=== PATIENT | female | born 1935 | race Caucasian/White ===

== ENCOUNTER 2017-02-17 06:49 | Day surgery (SDC) | payer OTHER ==
[~2017-02-17] VITALS: Ht 162.6 cm; Wt 54.5 kg
[~2017-02-17 06:49] MED LIST: ALEN70TA5 PO; ASCO500T8 PO; B12 PO; CALCIUM PO; D3 PO; FLUO40CR9 TD; GABA100C PO; HYDR-3307 PO; HYDR12.58 PO; IBUP200T5 PO; LOSA25TA5 PO; MULTI VITAMIN PO; ONDA-39 PO; OXYC1TAB7 PO; SIMV10TA3 PO; TRAM50TA2 PO; TRIA15OI TD; [UNRECOGNIZED DRUG - OTHER] PO
[2017-02-17] MEDS ORDERED: LACTATED RINGERS 1,000 ML IV SCH (07:19)
[2017-02-17 07:47] VITALS: BP 137/74
[2017-02-17] MEDS ORDERED: BUPIVACAINE/PF 0.5% ONE (08:30)
[2017-02-17] MEDS ORDERED: BUPIVACAINE/PF-EPI 0.25% 1:200K ONE (08:31)
[2017-02-17] MEDS ORDERED: FENTANYL PF 250 MCG/5ML ONE (08:51)
[2017-02-17] MEDS ORDERED: MIDAZOLAM 1 MG/ML, 2ML ONE (08:51)
[2017-02-17] MEDS ORDERED: DEXAMETHASONE 4 MG/ML, 1ML ONE (08:52)
[2017-02-17] MEDS ORDERED: PROPOFOL 10 MG/ML, 50ML ONE (08:52)
[2017-02-17] MEDS ORDERED: CEFAZOLIN 1,000 MG ONE (08:52)
[2017-02-17] MEDS ORDERED: ONDANSETRON 2MG/ML, 2ML ONE (08:52)
[2017-02-17] MEDS ORDERED: PROMETHAZINE 25 MG/ML, 1ML IV PRN (09:30)
[2017-02-17] MEDS ORDERED: ACETAMINOPHEN 325 MG TABLET PO PRN (09:30)
[2017-02-17] MEDS ORDERED: MIDAZOLAM 1 MG/ML, 2ML IV PRN (09:30)
[2017-02-17] MEDS ORDERED: MEPERIDINE/PF 25MG/0.5ML IVPush PRN (09:30)
[2017-02-17] MEDS ORDERED: HYDROmorphone 1 MG/ML, 1ML IV PRN (09:30)
[2017-02-17] MEDS ORDERED: METOCLOPRAMIDE 5 MG/ML, 2ML IV PRN (09:30)
[2017-02-17] MEDS ORDERED: OXYcodone 5 MG/5 ML ORAL.SOL UDC PO PRN (09:30)
[2017-02-17] MEDS ORDERED: FENTANYL PF 100 MCG/2ML IV PRN (09:30)
[2017-02-17] MEDS ORDERED: LABETALOL 5MG/ML, 20ML IV PRN (09:30)
[2017-02-17] MEDS ORDERED: hydrALAzine 20 MG/ML, 1ML IV PRN (09:30)
[2017-02-17] MEDS ORDERED: ONDANSETRON 2MG/ML, 2ML IVPush PRN (09:30)
[2017-02-17] MEDS ORDERED: OXYcodone 5 MG/5 ML ORAL.SOL UDC ONE (10:19)
[2017-02-17] MEDS ORDERED: LABETALOL 5MG/ML, 20ML ONE (10:22)
[2017-02-17] MEDS ORDERED: hydrALAzine 20 MG/ML, 1ML ONE (10:43)
== END 2017-02-17 12:20 ==
LOC: OUT 06:49
PROVIDERS: ATTEND Surgery
DX: L94.2 Calcinosis cutis (principal); Z79.82 Long term (current) use of aspirin; E78.00 Pure hypercholesterolemia, unspecified; Z87.39 Personal history of other diseases of the musculoskeletal system and connective tissue; Z90.49 Acquired absence of other specified parts of digestive tract; Z72.89 Other problems related to lifestyle; Z82.49 Family history of ischemic heart disease and other diseases of the circulatory system
CPT/HCPCS: 11403; 11404; 88304; 88311; J0360; J0690; J1100; J2250; J2405; J2704; J3010; J3490; J7120

== ENCOUNTER → 2017-10-05 | Outpatient (CLI) | payer OTHER ==
[~2017-10-05] MED LIST changes: +IBUP-1484 PO; -IBUP200T5 PO; -ONDA-39 PO; +ONDA4TAB12 PO
== END | disposition home or self-care (01) ==
LOC: CFH 10:22
PROVIDERS: ATTEND Nurse Practitioner Family
DX: Z12.31 Encounter for screening mammogram for malignant neoplasm of breast (principal); M85.88 Other specified disorders of bone density and structure, other site; M81.0 Age-related osteoporosis without current pathological fracture
CPT/HCPCS: 77080; G0202

== ENCOUNTER → 2019-02-05 | Outpatient (CLI) | payer MEDICARE ==
[~2019-02-05] MED LIST changes: -ALEN70TA5 PO; +ALEN70TA6 PO; -HYDR12.58 PO; +HYDROCHLOROTH12.5 MG PO; +LOSA25TA25 PO; -LOSA25TA5 PO
== END | disposition home or self-care (01) ==
LOC: RAD 08:45
PROVIDERS: ATTEND Surgery
DX: K91.30 Postprocedural intestinal obstruction, unspecified as to partial versus complete (principal); K63.89 Other specified diseases of intestine; Z88.6 Allergy status to analgesic agent; Z88.5 Allergy status to narcotic agent
CPT/HCPCS: 74250

== ENCOUNTER 2019-03-15 06:14 | Inpatient (IN) | payer MEDICARE ==
[~2019-03-15] VITALS: Ht 162.6 cm; Wt 53.2 kg
--- NOTE | 2019-03-15 06:15 | NUR ---
PT STRAIGHT BACK TO ROOM FROM TRIAGE DUE TO LEVEL OF DISCOMFORT. UNABLE TO OBTAIN VITALS IN TRIAGE
[2019-03-15] MEDS ORDERED: SODIUM CHLORIDE 0.9% 1,000 ML IV ONE ×2 (06:27→08:01)
[2019-03-15] MEDS ORDERED: SODIUM CHLORIDE FLUSH 10ML SYR IVF ONE (06:30)
[2019-03-15] MEDS ORDERED: ONDANSETRON 2MG/ML, 2ML IVPush ONE (06:30)
[2019-03-15] MEDS ORDERED: SODIUM CHLORIDE 0.9% 1,000ML IVBOLUS ONE (06:30)
[2019-03-15] MEDS ORDERED: ONDANSETRON 2MG/ML, 2ML ONE (06:31)
[2019-03-15] MEDS ORDERED: MORPHINE SULFATE 4 MG/ML, 1ML ONE ×3 (06:31→08:12)
--- NOTE | 2019-03-15 06:33 | NUR ---
DR. CAT IN TO EVAL PT. AND DISCUSS POC WITH PT. AND AT BS. DR. 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 IV ESTABLISHED.
[2019-03-15] MEDS: MORPHINE SULFATE 4 MG/ML, 1ML IVPush PRN ×2 (06:38→06:54)
--- NOTE | 2019-03-15 06:39 | NUR ---
CT WAS CALLED AND ASKED TO DO SCAN STAT. PT TO CT NOW.
--- NOTE | 2019-03-15 06:57 | NUR ---
IVF INFSUING, ALL MONITORS IN PLACE. REPORT TO LETY KHAN TO ASSUME CARE OF PT. PT. HAD CT DONE; THIS RN ACCOMPANIED PT. TO CT. AT FOR SUPPORT. PT. MEDICATED WITH 2ND DOSE PAIN MEDS PER MAR FOR CONTINUED 8/10 ABD PAIN.
--- NOTE | 2019-03-15 07:07 | NUR ---
bedside report from RN Judie, pt care assumed at this time. Pt in bed, CT & chest Xray complete, phlembotomist at bedside to collect blood, pt on all monitors, family member at bedside. МАРИНА.
[2019-03-15 07:27] LABS: BASOPHILS # (AUTO) 0.03 x10^3/uL (0-0.1); BASOPHILS % (AUTO) 0 % (0-1); EOSINOPHILS # (AUTO) 0.12 x10^3/uL (0-0.4); EOSINOPHILS % (AUTO) 2 % (1-7); LYMPHOCYTES # (AUTO) 2.05 x10^3/uL (1-3.4); LYMPHOCYTES % (AUTO) 26 % (22-44); MD NO; MEAN CORPUSCULAR HEMOGLOBIN 31.3 pg (27.0-34.8); MEAN CORPUSCULAR HGB CONC 31.9 g/dL (32.4-35.8); MEAN CORPUSCULAR VOLUME 98.1 fL (80-100); MEAN PLATELET VOLUME 8.1 fL (7.4-10.4); MONOCYTES # (AUTO) 0.68 x10^3/uL (0.2-0.8); MONOCYTES % (AUTO) 9 % (2-9); NEUTROPHILS # (AUTO) 5.07 x10^3/uL (1.8-6.8); NEUTROPHILS % (AUTO) 64 % (42-75); PLATELET COUNT 293 x10^3/uL (130-400); RED BLOOD COUNT 3.49 x10^6/uL (3.82-5.3); RED CELL DISTRIBUTION WIDTH 14.3 % (9.6-15.2)
[2019-03-15 07:34] LABS: ALANINE AMINOTRANSFERASE 39 U/L (12-78); ALBUMIN 3.6 g/dL (3.4-5.0); ANION GAP 5 mmol/L (5-15); CALCIUM 9.2 mg/dL (8.5-10.1); CHLORIDE 118 mmol/L (98-107); CREATININE 1.89 mg/dL (0.55-1.02)
[2019-03-15 07:36] LABS: ALKALINE PHOSPHATASE 65 U/L (45-117); TOTAL PROTEIN 6.1 g/dL (6.4-8.2)
[2019-03-15 07:37] LABS: BILIRUBIN,TOTAL < 0.1 mg/dL (0.2-1.0)
[2019-03-15] MEDS ORDERED: MORPHINE SULFATE 4 MG/ML, 1ML IVPush PRN (08:30)
[2019-03-15] MEDS ORDERED: SODIUM CHLORIDE FLUSH 10ML SYR IVF PRN (08:30)
[2019-03-15 10:15] VITALS: BP 133/68
[2019-03-15] MEDS ORDERED: ONDANSETRON 2MG/ML, 2ML IVPush PRN (11:00)
[2019-03-15] MEDS ORDERED: ACETAMINOPHEN 325 MG TABLET PO PRN (11:00)
[2019-03-15 12:23] LABS: MICROSCOPIC NOT IND
[2019-03-15 12:28] LABS: CULTURE INDICATED? NO
[2019-03-15 13:14] VITALS: BP 125/74
[2019-03-15] MEDS: SODIUM CHLORIDE 0.9% 1,000 ML IV SCH (13:18)
[2019-03-15 13:37] VITALS: BP 126/69
[2019-03-15 18:45] VITALS: BP 143/70
[2019-03-16 00:48] VITALS: BP 137/70
[2019-03-16] MEDS: SODIUM CHLORIDE 0.9% 1,000 ML IV SCH (02:20)
[2019-03-16] MEDS: morphine SULFATE 10 MG/ML, 1ML IVPush PRN (02:20)
[2019-03-16 05:28] LABS: ANION GAP 6 mmol/L (5-15); CALCIUM 8.2 mg/dL (8.5-10.1); CHLORIDE 123 mmol/L (98-107)
[2019-03-16 05:32] LABS: CREATININE 1.65 mg/dL (0.55-1.02)
[2019-03-16 06:19] LABS: MD YES; MEAN CORPUSCULAR HEMOGLOBIN 32.5 pg (27.0-34.8); MEAN CORPUSCULAR HGB CONC 33.2 g/dL (32.4-35.8); MEAN CORPUSCULAR VOLUME 97.8 fL (80-100); MEAN PLATELET VOLUME 9.1 fL (7.4-10.4); PLATELET COUNT 270 x10^3/uL (130-400); RED BLOOD COUNT 3.22 x10^6/uL (3.82-5.3); RED CELL DISTRIBUTION WIDTH 14.2 % (9.6-15.2)
[2019-03-16 06:20] LABS: EOS#(MANUAL) 0.19 x10^3/uL (0.0-0.4); EOS% (MANUAL) 3 % (1-7); LYMPH#(MANUAL) 1.55 x10^3/uL (1-3.4); LYMPHS% (MANUAL) 25 % (22-44); MONOS#(MANUAL) 0.37 x10^3/uL (0.3-2.7); MONOS% (MANUAL) 6 % (2-9); SEG#(MANUAL) 4.09 x10^3/uL (1.8-6.8); SEGS% (MANUAL) 66 % (42-75)
[2019-03-16 06:21] LABS: <PLATELET ESTIMATE> ADEQUATE; <PLT MORPHOLOGY> NORMAL PLT MORPH; <RBC MORPHOLOGY> NORMAL
[2019-03-16] MEDS: PANTOPRAZOLE 40 MG IV IVPush SCH (07:30)
[2019-03-16 07:34] VITALS: BP 136/74
[2019-03-16] MEDS: D5%-0.45% NACL 1,000 ML IV SCH (11:01)
[2019-03-16 13:00] VITALS: BP 171/89
[2019-03-16 13:07] LABS: ANION GAP 7 mmol/L (5-15); CALCIUM 8.3 mg/dL (8.5-10.1); CHLORIDE 121 mmol/L (98-107); CREATININE 1.67 mg/dL (0.55-1.02)
[2019-03-16 14:18] VITALS: BP 174/83
[2019-03-16] MEDS: hydrALAzine 20 MG/ML, 1ML IVPush PRN (14:24)
[2019-03-16] MEDS: METOCLOPRAMIDE 5 MG/ML, 2ML IVPush SCH ×2 (17:13→21:21)
[2019-03-16 18:10] VITALS: BP 168/97
[2019-03-17 00:19] VITALS: BP 155/77
[2019-03-17] MEDS: D5%-0.45% NACL 1,000 ML IV SCH (04:32)
[2019-03-17] MEDS: METOCLOPRAMIDE 5 MG/ML, 2ML IVPush SCH (04:32)
[2019-03-17] MEDS: PANTOPRAZOLE 40 MG IV IVPush SCH (08:50)
[2019-03-17 09:00] VITALS: BP 177/79
[2019-03-17] MEDS: hydrALAzine 20 MG/ML, 1ML IVPush PRN (09:51)
[2019-03-17] MEDS: METOCLOPRAMIDE 1 MG/1 ML ORAL SOL PO SCH ×3 (11:30→20:06)
[2019-03-17] MEDS: LOSARTAN 25MG TABLET PO SCH (12:38)
[2019-03-17] MEDS: ASCORBIC ACID 500 MG TABLET PO SCH (12:38)
[2019-03-17 14:28] VITALS: BP 155/75
[2019-03-17 15:53] LABS: ANION GAP 8 mmol/L (5-15); CALCIUM 8.5 mg/dL (8.5-10.1); CHLORIDE 118 mmol/L (98-107)
[2019-03-17 15:54] LABS: CREATININE 1.77 mg/dL (0.55-1.02)
[2019-03-17] MEDS ORDERED: MAGNESIUM SULFATE PMX 2GM/50ML 50 ML IV ONE (17:00)
[2019-03-17 20:13] VITALS: BP 162/73
[2019-03-17] MEDS ORDERED: GABAPENTIN 100 MG CAPSULE PO SCH (21:00)
[2019-03-17] MEDS ORDERED: SIMVASTATIN 10 MG TABLET PO SCH (21:00)
[2019-03-17] MEDS: morphine SULFATE 10 MG/ML, 1ML IVPush PRN (22:39)
[2019-03-18 01:07] VITALS: BP 154/71
[2019-03-18] MEDS: METOCLOPRAMIDE 1 MG/1 ML ORAL SOL PO SCH ×2 (05:12→10:58)
[2019-03-18 07:19] VITALS: BP 156/72
[2019-03-18] MEDS: ASCORBIC ACID 500 MG TABLET PO SCH (08:54)
[2019-03-18] MEDS: PANTOPRAZOLE 40 MG IV IVPush SCH (08:54)
[2019-03-18] MEDS: LOSARTAN 25MG TABLET PO SCH (08:55)
[2019-03-18 13:01] VITALS: BP 134/79
[2019-03-18] MEDS ORDERED: ERYT250C8 PO (13:06)
== END 2019-03-18 14:45 | disposition home or self-care (01) | DRG 389 ==
LOC: ED 07:55 → 4NOR 09:45 → ED 10:20 → 4NOR 10:23
PROVIDERS: ADMIT Internal Medicine; ATTEND Internal Medicine
DX: K56.7 Ileus, unspecified (principal); N18.4 Chronic kidney disease, stage 4 (severe); E87.0 Hyperosmolality and hypernatremia; K31.84 Gastroparesis; D63.1 Anemia in chronic kidney disease; E78.5 Hyperlipidemia, unspecified; E83.42 Hypomagnesemia; E87.5 Hyperkalemia; G89.29 Other chronic pain; M54.9 Dorsalgia, unspecified; I12.9 Hypertensive chronic kidney disease with stage 1 through stage 4 chronic kidney disease, or unspecified chronic kidney disease; M81.0 Age-related osteoporosis without current pathological fracture; Z82.49 Family history of ischemic heart disease and other diseases of the circulatory system; Z82.5 Family history of asthma and other chronic lower respiratory diseases; Z79.899 Other long term (current) drug therapy; Z90.49 Acquired absence of other specified parts of digestive tract
CPT/HCPCS: 36415; 71045; 74018; 74176; 74250; 80048; 80053; 81003; 83605; 83690; 83735; 84100; 85025; 93005; 96361; 96374; 96375; 99285; G0378; J2405; C9113; J0360; J2270; J2765; J3475; J7030

== ENCOUNTER 2019-05-22 09:44 | Outpatient (CLI) | payer MEDICARE ==
[~2019-05-22 09:44] MED LIST changes: +ERYT250C8 PO
== END 2019-05-22 23:59 | disposition home or self-care (01) ==
LOC: CFH 09:44 → RAD 23:59
PROVIDERS: ATTEND Nurse Practitioner
DX: M47.27 Other spondylosis with radiculopathy, lumbosacral region (principal); M48.07 Spinal stenosis, lumbosacral region; M48.56XA Collapsed vertebra, not elsewhere classified, lumbar region, initial encounter for fracture; M47.25 Other spondylosis with radiculopathy, thoracolumbar region; Z98.890 Other specified postprocedural states
CPT/HCPCS: 72148

== ENCOUNTER 2019-11-29 04:00 | Emergency (ER) | payer MEDICARE ==
[~2019-11-29] VITALS: Ht 162.6 cm; Wt 53.0 kg
[~2019-11-29 04:00] MED LIST changes: -HYDR-3307 PO; +HYDR-36 PO; -IBUP-1484 PO; +IBUP-1902 PO
--- NOTE | 2019-11-29 04:08 | NUR ---
EKG REQUESTED FROM TECH. PT SHAKING IN TRIAGE, SO EKG TO BE DONE IN PT ROOM AT THIS TIME.
[2019-11-29] MEDS ORDERED: ONDANSETRON 2MG/ML, 2ML IVPush ONE (04:30)
[2019-11-29] MEDS ORDERED: SODIUM CHLORIDE FLUSH 10ML SYR IVF ONE (04:30)
[2019-11-29] MEDS ORDERED: ONDANSETRON 2MG/ML, 2ML ONE (04:32)
[2019-11-29] MEDS ORDERED: MORPHINE SULFATE 4 MG/ML, 1ML ONE ×2 (04:32→05:10)
[2019-11-29] MEDS: MORPHINE SULFATE 4 MG/ML, 1ML IVPush PRN ×2 (04:36→05:12)
--- NOTE | 2019-11-29 04:48 | NUR ---
"HORTENCIA HAD THIS FOR ABOUT 10 YEARS" BOWEL OBSTRUCTION. "SOME KIND OF INFECTION ONLY TREATED PERODICALLY WITH ABX, THAT DOES HELP. I GET REALLY BLOATED, LOTS OF GAS, NOTHING TO DO WITH WHAT I EAT" THIS EPISODE STARTED ABOUT MIDNIGHT, WORSENED AROUND 0300 THIS MORNING. LAST BM AT MIDNIGHT.
[2019-11-29] MEDS ORDERED: LOSA25TA25 PO (04:58)
--- NOTE | 2019-11-29 04:58 | NUR ---
PT IN SOME DISTRESS WITH WITH PAIN. MEDICATED WITH MORPHINE WITH LITTLE EFFECT
--- NOTE | 2019-11-29 05:06 | NUR ---
CT PENDING CREATINE
[2019-11-29 05:10] LABS: BASOPHILS # (AUTO) 0.03 x10^3/uL (0-0.1); BASOPHILS % (AUTO) 1 % (0-1); EOSINOPHILS # (AUTO) 0.12 x10^3/uL (0-0.4); EOSINOPHILS % (AUTO) 2 % (1-7); LYMPHOCYTES # (AUTO) 1.48 x10^3/uL (1-3.4); LYMPHOCYTES % (AUTO) 24 % (22-44); MD NO; MEAN CORPUSCULAR HEMOGLOBIN 30.6 pg (27.0-34.8); MEAN CORPUSCULAR HGB CONC 31.7 g/dL (32.4-35.8); MEAN CORPUSCULAR VOLUME 96.5 fL (80-100); MEAN PLATELET VOLUME 8.3 fL (7.4-10.4); MONOCYTES # (AUTO) 0.56 x10^3/uL (0.2-0.8); MONOCYTES % (AUTO) 9 % (2-9); NEUTROPHILS # (AUTO) 4.02 x10^3/uL (1.8-6.8); NEUTROPHILS % (AUTO) 65 % (42-75); PLATELET COUNT 304 x10^3/uL (130-400); RED BLOOD COUNT 4.03 x10^6/uL (3.82-5.3); RED CELL DISTRIBUTION WIDTH 14.3 % (9.6-15.2)
[2019-11-29 05:20] LABS: ALANINE AMINOTRANSFERASE 20 U/L (12-78); ALBUMIN 3.7 g/dL (3.4-5.0); ANION GAP 9 mmol/L (5-15); CHLORIDE 112 mmol/L (98-107); CREATININE 1.63 mg/dL (0.55-1.02)
[2019-11-29 05:23] LABS: ALKALINE PHOSPHATASE 63 U/L (45-117); BILIRUBIN,TOTAL 0.2 mg/dL (0.2-1.0); TOTAL PROTEIN 6.5 g/dL (6.4-8.2)
--- NOTE | 2019-11-29 05:28 | NUR ---
DELFINO INFORMED OF PT PAIN LEVEL. SHE SAID TO WAIT 30 MIN IN BETWEEN MORHINE DOSES AND THEN SHE WILL REASSESS PT PAIN IF NEEDED.
[2019-11-29 05:31] LABS: MICROSCOPIC AUTO
[2019-11-29 05:33] LABS: CULTURE INDICATED? NO
--- NOTE | 2019-11-29 05:55 | NUR ---
PT CONTINUES TO BE IN SEVERE PAIN. I EDUCATED PT ON THE MEDICATIONS WE GIVE HERE, THEY ARE MUCH STRONGER THEN HOME PAIN MEDS. EDUCATED ABOUT RISKS OF GIVING TOO MUCH PAIN MEDS. PT VERBALIZED UNDERSTANDING, HOWEVER STILL IN SEVERE PAIN AND STILL REQUESTING MORE PAIN MEDS. DELFINO AND DR KHALIL NOTIFIED.
[2019-11-29] MEDS ORDERED: HYDROmorphone 1 MG/ML, 1ML INJ ONE ×2 (06:09→09:25)
--- NOTE | 2019-11-29 06:19 | NUR ---
ER MD SIMRAN IN TO DISCUSS POC WITH PT AND SPOUSE. ORDERS RECIEVED FOR MORE PAIN MEDS.
[2019-11-29] MEDS ORDERED: HYDROmorphone 2 MG/ML, 1ML IVPush ONE (06:30)
[2019-11-29] MEDS ORDERED: LORazepam 2 MG/ML, 1ML IVPush ONE (06:30)
--- NOTE | 2019-11-29 06:56 | NUR ---
REPORT RECIEVED FROM KEV RN, ASSUMED CARE OF PT. VSS AT THIS TIME.
[2019-11-29] MEDS ORDERED: LORazepam 2 MG/ML, 1ML ONE (07:37)
--- NOTE | 2019-11-29 07:45 | NUR ---
ORDERS RECIEVED TO PLACE NG, PT REFUSING AT THIS TIME. STATES SHE WILL NOT ALLOW TUBE TO BE PLACED UNTIL SHE SPEAKS WITH DR PEMBERTON. OFFERED PT IV ATIVAN ORDERED, PT WISHES TO HOLD OFF UNTIL SHE SPEAKS WITH GI .
[2019-11-29] MEDS ORDERED: ONDANSETRON 2MG/ML, 2ML IVPush PRN (08:00)
[2019-11-29] MEDS ORDERED: LORazepam 2 MG/ML, 1ML IVPush PRN (08:00)
[2019-11-29] MEDS ORDERED: HYDROmorphone 1 MG/ML, 1ML INJ IVPush PRN (08:00)
[2019-11-29] MEDS ORDERED: HEPARIN 5,000 UNITS/ML, 1ML SQ SCH (08:00)
[2019-11-29] MEDS ORDERED: LOSARTAN 50MG TABLET PO SCH (09:00)
[2019-11-29 09:28] VITALS: BP 121/44
--- NOTE | 2019-11-29 09:32 | NUR ---
PT RESTING ON GURNEY AT THIS TIME, PT CONTIUNES TO REFUSE PLACEMENT OF NG. PT GIVEN ADDITIONAL PAIN MEDICATIONS PER REQUEST. VSS
[2019-11-29 10:02] LABS: FREE T4 (FREE THYROXINE) 1.04 ng/dL (0.76-1.46)
[2019-11-29] MEDS ORDERED: MAGNESIUM SULFATE PMX 2GM/50ML 50 ML IV ONE (11:00)
[2019-11-29] MEDS ORDERED: D5%-0.45% NACL 1,000 ML IV SCH (11:00)
--- NOTE | 2019-11-29 12:27 | NUR ---
TASK RN: PT READY TO DISCHARGE. Patient/Caregiver given discharge instructions and they have confirmed that they understand the instructions. Patient ambulatory with steady gait. PIV D/C. PRESSURE DRESSING APPLIED. PT LEFT WITH ALL PERSONAL BELONGINGS.
[2019-11-30] MEDS ORDERED: PANTOPRAZOLE 40 MG IV IVPush SCH (07:30)
== END 2019-11-29 12:31 | disposition home or self-care (01) ==
LOC: ED 06:08 → EDIP 07:28 → UNDOADMIN 07:28 → SUATTDRO 07:36 → UNDODISIN 12:29 → EDIP 12:31
PROVIDERS: ATTEND Hospitalist
DX: K56.609 Unspecified intestinal obstruction, unspecified as to partial versus complete obstruction (principal); R10.84 Generalized abdominal pain
CPT/HCPCS: 36415; 74176; 80053; 81001; 83690; 83735; 84100; 84439; 84443; 85025; 93005; 96374; 96375; 96376; 99284; J1170; J2270; J2405

== ENCOUNTER 2020-10-30 13:45 | Outpatient (CLI) | payer MEDICARE ==
[~2020-10-30 13:45] MED LIST changes: -ALEN70TA6 PO; +ALEN70TA77 PO; +ERYT250C37 PO; -ERYT250C8 PO; +HYDR-3246 PO; -HYDR-36 PO; +ONDA-89 PO; -ONDA4TAB12 PO; +SIMV10TA18 PO; -SIMV10TA3 PO
== END 2020-10-30 23:59 | disposition home or self-care (01) ==
LOC: CFH 13:45
PROVIDERS: ATTEND Nurse Practitioner Primary Care
DX: Z77.098 Contact with and (suspected) exposure to other hazardous, chiefly nonmedicinal, chemicals (principal)
CPT/HCPCS: 82565

== ENCOUNTER → 2020-12-23 | Outpatient (CLI) | payer MEDICARE ==
[~2020-12-23] MED LIST changes: -HYDR-3246 PO; +HYDR-3248 PO
== END | disposition home or self-care (01) ==
LOC: CFH 11:10
PROVIDERS: ATTEND Nurse Practitioner
DX: S33.110A Subluxation of L1/L2 lumbar vertebra, initial encounter (principal); X58.XXXA Exposure to other specified factors, initial encounter; Y93.89 Activity, other specified; Y92.89 Other specified places as the place of occurrence of the external cause; Y99.8 Other external cause status
CPT/HCPCS: 72120

== ENCOUNTER → 2021-01-16 | Outpatient (CLI) | payer MEDICARE | END | disposition home or self-care (01) | LOC: CFH 13:23 | PROVIDERS: ATTEND Surgery | DX: I71.6 Thoracoabdominal aortic aneurysm, without rupture (principal); I70.0 Atherosclerosis of aorta; N95.9 Unspecified menopausal and perimenopausal disorder; M43.8X6 Other specified deforming dorsopathies, lumbar region; K63.89 Other specified diseases of intestine; Z90.49 Acquired absence of other specified parts of digestive tract | CPT/HCPCS: 74176; 82565 ==

== ENCOUNTER 2021-01-19 15:21 | Emergency (ER) | payer MEDICARE ==
[~2021-01-19] VITALS: Ht 162.6 cm; Wt 56.3 kg
--- NOTE | 2021-01-19 16:00 | NUR ---
Report from LETY Sal. [facility].
--- NOTE | 2021-01-19 16:15 | NUR ---
Pt presents with distended, firm abdomen, non-tender to palpation. Reports she had diarrhea on but has not had BM for a few days now. Reports she has been urinating like normal. Denies chest pain, reports having some SOB but sats >93% on RA. Pt takes losartan and oxycodone at home. at bedside.
--- NOTE | 2021-01-19 16:18 | NUR ---
Provider at bedside.
[2021-01-19 16:35] VITALS: BP 159/79
[2021-01-19 17:20] LABS: BASOPHILS % (AUTO) 1 % (0-1); EOSINOPHILS % (AUTO) 1 % (1-7); LYMPHOCYTES % (AUTO) 12 % (22-44); MEAN CORPUSCULAR HEMOGLOBIN 30.5 pg (27.0-34.8); MEAN CORPUSCULAR HGB CONC 32.6 g/dL (32.4-35.8); MEAN PLATELET VOLUME 8.7 fL (7.4-10.4); MONOCYTES % (AUTO) 12 % (2-9); NEUTROPHILS % (AUTO) 75 % (42-75); PLATELET COUNT 295 x10^3/uL (130-400); RED BLOOD COUNT 4.45 x10^6/uL (3.82-5.3); RED CELL DISTRIBUTION WIDTH 13.7 % (9.6-15.2)
[2021-01-19 17:28] LABS: MD NO
--- NOTE | 2021-01-19 17:30 | NUR ---
Pt ambulating to bathroom, steady equal gait.
[2021-01-19 17:31] LABS: ALANINE AMINOTRANSFERASE 22 U/L (12-78); ALBUMIN 3.8 g/dL (3.4-5.0); ANION GAP 8 mmol/L (5-15); CALCIUM 9.9 mg/dL (8.5-10.1); CHLORIDE 104 mmol/L (98-107); CREATININE 1.96 mg/dL (0.55-1.02)
[2021-01-19 17:33] LABS: ALKALINE PHOSPHATASE 71 U/L (45-117); BILIRUBIN,TOTAL 0.3 mg/dL (0.2-1.0); TOTAL PROTEIN 6.9 g/dL (6.4-8.2)
--- NOTE | 2021-01-19 17:40 | NUR ---
UA collected and walked to lab.
--- NOTE | 2021-01-19 18:18 | NUR ---
RN at bedside, updating pt on plan.
[2021-01-19 18:33] LABS: MICROSCOPIC INDICATED
--- NOTE | 2021-01-19 18:47 | NUR ---
at bedside. Pt given option to be admitted or go home, pt states she want to go home. Will DC.
--- NOTE | 2021-01-19 18:55 | NUR ---
Report to LETY Stover.
== END 2021-01-19 19:19 | disposition home or self-care (01) ==
LOC: ED 18:49
DX: R10.84 Generalized abdominal pain (principal); K59.00 Constipation, unspecified; G89.29 Other chronic pain; Z88.5 Allergy status to narcotic agent; Z87.891 Personal history of nicotine dependence
CPT/HCPCS: 36415; 74021; 80053; 81001; 83690; 85025; 99284

== ENCOUNTER 2021-06-05 13:12 | Outpatient (CLI) | payer MEDICARE ==
[2021-07-30] MEDS ORDERED: OXYC5TAB98 PO (15:28)
[2021-08-07] MEDS ORDERED: SENN-211 PO (12:17)
[2021-08-07] MEDS ORDERED: OMEP-110 PO (12:17)
[2021-08-07] MEDS ORDERED: OXYC1TAB12 PO (12:17)
== END 2021-06-05 23:59 | disposition home or self-care (01) ==
LOC: RAD 13:12
PROVIDERS: ATTEND Internal Medicine Gastroenterology
DX: Z02.9 Encounter for administrative examinations, unspecified (principal)